=== PATIENT | male | born 1985 | race African-American/Black ===

== ENCOUNTER 2018-11-14 00:11 | Emergency (ER) | payer OTHER ==
[~2018-11-14] VITALS: Ht 172.7 cm; Wt 66.7 kg
[2018-11-14 00:18] VITALS: Ht 172.7 cm; Wt 66.7 kg
[2018-11-14 01:52] VITALS: BP 136/72
== END 2018-11-14 01:52 | disposition short-term general hospital (02) ==
LOC: ED 00:11
DX: S63.065A Dislocation of metacarpal (bone), proximal end of left hand, initial encounter (principal); W22.01XA Walked into wall, initial encounter; Y93.89 Activity, other specified; Y92.89 Other specified places as the place of occurrence of the external cause; Y99.8 Other external cause status
CPT/HCPCS: J2001